=== PATIENT | female | born 1970 | race Two or more races ===

== ENCOUNTER 2019-09-17 02:26 | Emergency (ER) | payer OTHER, SELFPAY ==
[~2019-09-17] VITALS: Ht 152.4 cm; Wt 65.5 kg
[~2019-09-17 02:26] MED LIST: DICY10CA88 PO
[2019-09-17] MEDS ORDERED: aspirin 81mg tab.chew PO STA (02:55)
[2019-09-17 03:16] LABS: BASOPHILS # (AUTO) 0.1 X10'3 (0-0.2); BASOPHILS % (AUTO) 0.6 % (0-1); EOSINOPHILS # (AUTO) 0.2 X10'3 (0-0.9); EOSINOPHILS % (AUTO) 2.1 % (0-6); HEMATOCRIT 38.8 % (35.0-45.0); HEMOGLOBIN 13.3 g/dl (12.0-16.0); LYMPHOCYTES # (AUTO) 3.1 X10'3 (1.1-4.8); LYMPHOCYTES % (AUTO) 31.3 % (21-51); MEAN CORPUSCULAR HEMOGLOBIN 29.8 PG (27.0-31.0); MEAN CORPUSCULAR HGB CONC 34.2 g/dL (33.0-36.5); MEAN CORPUSCULAR VOLUME 87.1 FL (78-98); MEAN PLATELET VOLUME 8.3 FL (7.4-10.4); MONOCYTES # (AUTO) 0.9 X10'3 (0-0.9); MONOCYTES % (AUTO) 8.9 % (2-12); NEUTROPHILS # (AUTO) 5.7 X10'3 (1.8-7.7); NEUTROPHILS % (AUTO) 57.1 % (42-75); PLATELET COUNT 252 X10'3 (140-440); RED BLOOD COUNT 4.46 X10'6 (4.20-5.60); RED CELL DISTRIBUTION WIDTH 14.2 % (11.5-14.5)
[2019-09-17 03:33] LABS: ALANINE AMINOTRANSFERASE 20 U/L (12-78); ALBUMIN 3.4 G/DL (3.4-5.0); ALBUMIN/GLOBULIN RATIO 0.9 (1.1-1.5); ALKALINE PHOSPHATASE 64 IU/L (46-116); ANION GAP 10 (8-16); ASPARTATE AMINO TRANSFERASE 21 U/L (10-37); BILIRUBIN,TOTAL 0.2 MG/DL (0.1-1.0); BLOOD UREA NITROGEN 20 MG/DL (7-18); BUN/CREATININE RATIO 23.3 (6.6-38.0); CALCIUM 8.5 MG/DL (8.5-10.1); CHLORIDE 106 MMOL/L (99-107); CREATININE 0.86 MG/DL (0.40-0.90); GLUCOSE 122 MG/DL (70-104); SODIUM 140 MMOL/L (135-145); TOTAL PROTEIN 7.3 G/DL (6.4-8.2); eGFR 71 ML/MIN
[2019-09-17 03:42] LABS: POTASSIUM 3.9 MMOL/L (3.5-5.1)
[2019-09-17] MEDS ORDERED: NO HOME MEDS (04:26)
[2019-09-17] MEDS ORDERED: aminophylline 250mg/10ml inj. IV PRN (04:35)
[2019-09-17] MEDS ORDERED: magnesium 4gm in 100ml NS 100 ML IV PRN (04:35)
[2019-09-17] MEDS ORDERED: metoprolol tartrate 1mg/ml inj IV PRN (04:35)
[2019-09-17] MEDS ORDERED: acetaminophen 325mg tablet PO PRN ×2 (04:35)
[2019-09-17] MEDS ORDERED: magnesium hydroxide 30ml (MOM) UD suspension PO PRN (04:35)
[2019-09-17] MEDS ORDERED: mag hydrox/Alum hydrox/simeth 30ml oral suspension PO PRN (04:35)
[2019-09-17] MEDS ORDERED: ondansetron/PF 4mg/2ml inj IV PRN (04:35)
[2019-09-17] MEDS ORDERED: morphine 2 MG/ML inj. syringe IV PRN ×2 (04:35)
[2019-09-17] MEDS ORDERED: magnesium 2GM in 50ml NS 50 ML IV PRN (04:35)
[2019-09-17] MEDS ORDERED: magnesium Cl slow-release 64mg tablet PO PRN (04:35)
[2019-09-17] MEDS ORDERED: potassium Cl 20 mEq SR tablet PO PRN ×2 (04:35)
[2019-09-17] MEDS ORDERED: regadenoson 0.4mg/5ml syringe IV PRN (04:35)
[2019-09-17] MEDS ORDERED: nitroGLYCERIN 0.4mg SUBLingual tab SL PRN ×2 (04:35)
[2019-09-17] MEDS ORDERED: potassium CL 10mEq/100ml bag 100 ML IV PRN ×2 (04:35)
[2019-09-17 04:52] LABS: LIPASE 172 U/L (73-393)
[2019-09-17 05:06] LABS: CHOL/HDL RATIO 4.1 (0.00-4.99); CHOLESTEROL 170 MG/DL (0-200); HDL CHOLESTEROL 41 MG/DL (35-60); LDL CHOLESTEROL 107 MG/DL (50-100); TRIGLYCERIDES 224 MG/DL (20-135)
--- NOTE | 2019-09-17 05:30 | NUR ---
Received report from Sae in ER. Awaiting pt arrival to room [facility]. Addendum: 09/17/19 at 0530 by Yasmine Marr RN Amended: Links added.
[2019-09-17 05:31] LABS: COLOR,URINE STRAW (Yellow); GLUCOSE, URINE NEGATIVE (Neg); KETONES,URINE NEGATIVE (Neg); LEUKOCYTE ESTERASE ,URINE NEGATIVE (Neg); NITRITES, URINE NEGATIVE (Neg); OCCULT BLOOD,URINE SMALL (Neg); PROTEIN,URINE NEGATIVE (Neg); UROBILINOGEN,URINE 0.2 E.U/dL (0.2-1.0)
[2019-09-17 05:32] LABS: URINE HCG NEGATIVE (NEG)
[2019-09-17 05:35] LABS: CLARITY,URINE SLIGHTLY CLOUDY (Clear); UA COLLECTION TYPE CLN CATCH MIDSTREAM
--- NOTE | 2019-09-17 05:37 | NUR ---
Pt will not be transferred to unit and is going home per MIRANDA Quevedo. Addendum: 09/17/19 at 0540 by Yasmine Marr RN Amended: Links added.
[2019-09-17 05:39] LABS: BACTERIA,URINE 1+ /HPF (Neg); MUCUS STRANDS NONE SEEN /LPF (Neg); SQUAMOUS EPITHELIAL CELL,UR FEW /LPF (FEW); WBC,URINE 0-4 /HPF (0-4)
[2019-09-17 05:45] LABS: URINE AMPHETAMINE SCREEN NEGATIVE (Neg); URINE BARBITUATE SCREEN NEGATIVE (Neg); URINE BENZODIAZEPINES SCREEN NEGATIVE (Neg); URINE CANNABINOID SCREEN NEGATIVE (Neg); URINE COCAINE SCREEN NEGATIVE (Neg); URINE METHADONE SCREEN NEGATIVE (Neg); URINE OPIATE SCREEN NEGATIVE (Neg); URINE PHENCYCLIDINE SCREEN NEGATIVE (Neg)
[2019-09-17 05:46] VITALS: BP 113/67
[2019-09-17 05:53] LABS: ETHANOL < 0.010 GM/DL (0.0-0.010)
[2019-09-17] MEDS ORDERED: aspirin 325mg tablet, delayed-release (Ecotrin) PO SCH (08:00)
[2019-09-17] MEDS ORDERED: K and/or MAG REPLACEMENT MC SCH (08:00)
[2019-09-17] MEDS ORDERED: enoxaparin 40mg/0.4ml syringe SQ SCH (08:00)
== END 2019-09-17 05:48 | disposition home or self-care (01) ==
LOC: ER 02:27
DX: I20.9 Angina pectoris, unspecified (principal); R07.89 Other chest pain; Z98.890 Other specified postprocedural states
CPT/HCPCS: 36415; 71046; 80053; 80061; 80305; 80320; 81001; 81025; 83690; 84443; 84484; 85025; 93005; 99284